=== PATIENT | female | born 1995 | race Caucasian/White ===

== ENCOUNTER 2025-01-26 02:18 | Outpatient (CLI) | payer MEDICAID, SELFPAY ==
[2025-01-26 15:17] LABS: Abs Immature Grans 0.03 10^3/uL (0.0-0.06); HCT 33.2 % (36.0-46.0); HGB 11.2 g/dL (11.2-15.7); Immature Grans % 0.4 %; MCH 30.4 pg (27.0-33.0); MCHC 33.7 % (32.0-36.0); MCV 90 fL (80-95); MPV 10.4 fL (8.0-11.0); Platelet Count 246 10^3/uL (130-400); RBC 3.68 10^6/uL (3.93-5.22); RDW 14.7 % (11.7-14.6); RDW-SD 49.1 fL; WBC 7.90 10^3/uL (4.4-10.8)
== END 2025-01-26 02:19 | disposition home or self-care (01) ==
LOC: LBO 02:18
PROVIDERS: Visit Provider Advanced Practice Midwife
DX: Z34.91 Encounter for supervision of normal pregnancy, unspecified, first trimester (principal)
CPT/HCPCS: 36415; 86850; 86900; 86901; 85025

== ENCOUNTER 2025-03-09 02:08 | Outpatient (CLI) | payer MEDICAID, SELFPAY ==
--- NOTE | 2025-03-09 06:30 | DI.US_ITS ---
Exam(s) US OB 2-3 TRIMESTER EXAM: US OB 2-3 TRIMESTER CLINICAL HISTORY: Anatomy scan,z34.90. TECHNIQUE: Transabdominal obstetrical ultrasound was performed. COMPARISON: US POCUS EXAM from 12/27/2024 FINDINGS: There is a single viable intrauterine gestation with cardiac activity identified-142 bpm. Amniotic fluid: There is a normal amount of amniotic fluid. Placental location: The placenta is anterior grade 1. The distance between the tip of the placenta and the internal cervical os is 2.7 cm. The distance between the edge of the placenta and the insertion of the umbilical cord onto the placenta is 3.2 cm. ANATOMY: A 3 vessel umbilical cord is seen. A four-chamber cardiac view was obtained. Right and left ventricular outflow tracts were imaged. There are no obvious abnormalities of the spinal column evident. There is no obvious abnormality of the anterior abdominal wall. stomach and urinary bladder are identified and there is no evidence of hydronephrosis. No abnormalities of the upper lip region are identified. No evidence of choroid plexus cysts in the brain. Dating parameters place this at approximately 21 weeks and 0 days gestational age. BPD measures 20 weeks and 3 days HC measures 20 weeks and 4 days AC measures 21 weeks and 3 days FL measures 21 weeks and 3 days Estimated weight is 411 gm-0 pounds 15 ounces Fetus is at the 51st percentile on the Hadlock scale. IMPRESSION:: Single viable intrauterine gestation which is approximately 21 weeks gestational age, implying an BRIE of 07/20/2025. There are no obvious anomalies evident on today's study. The placenta is anterior grade 1 with no evidence of placenta previa. There is a normal amount of amniotic fluid. DATA REPOSITORY:
== END 2025-03-09 02:28 ==
LOC: DI 02:08
PROVIDERS: Visit Provider Obstetrics & Gynecology
DX: Z34.92 Encounter for supervision of normal pregnancy, unspecified, second trimester (principal)
CPT/HCPCS: 76805

== ENCOUNTER 2025-05-11 02:40 | Outpatient (CLI) | payer MEDICAID, SELFPAY ==
[2025-05-11 13:58] LABS: HCT 28.9 % (36.0-46.0); HGB 9.3 g/dL (11.2-15.7); MCH 29.0 pg (27.0-33.0); MCHC 32.2 % (32.0-36.0); MCV 90 fL (80-95); MPV 10.0 fL (8.0-11.0); Platelet Count 277 10^3/uL (130-400); RBC 3.21 10^6/uL (3.93-5.22); RDW 13.2 % (11.7-14.6); RDW-SD 43.6 fL; WBC 8.88 10^3/uL (4.4-10.8)
== END 2025-05-11 02:41 | disposition home or self-care (01) ==
LOC: LBO 02:40
PROVIDERS: Visit Provider Advanced Practice Midwife
DX: Z34.93 Encounter for supervision of normal pregnancy, unspecified, third trimester (principal)
CPT/HCPCS: 36415; 85027

== ENCOUNTER 2025-06-22 13:35 | Outpatient (REF) | payer MEDICAID, SELFPAY | END 2025-06-22 13:36 | disposition home or self-care (01) | LOC: LBN 13:35 | PROVIDERS: Visit Provider Advanced Practice Midwife | DX: Z34.93 Encounter for supervision of normal pregnancy, unspecified, third trimester (principal) | CPT/HCPCS: 87081 ==